=== PATIENT | female | born 1970 | race Caucasian/White ===

== ENCOUNTER 2016-09-26 07:34 | Emergency (ER) | payer OTHER ==
[~2016-09-26] VITALS: Ht 162.6 cm; Wt 68.0 kg
[~2016-09-26 07:34] MED LIST: ONDA4TAB10 SL; OXYC-323 PO
[2016-09-26 07:47] VITALS: BP 132/86
[2016-09-26] MEDS ORDERED: DIPHTH,PERTUSS(ACELL),TET TOX 0.5 ML DISP.SYRIN. VAX IM ONE (08:00)
[2016-09-26] MEDS ORDERED: HYDROcodone/APAP 5/325MG 1 TAB TABLET PO ONE (08:00)
[2016-09-26] MEDS ORDERED: HYDR-971 PO (08:07)
--- NOTE | 2016-09-26 08:07 | PHYS DOC ---
Past Medical History Past Medical History: Anemia Past Surgical History: , Gastric Bypass, Knee Replacement, Tubal ligation, Other Additional Past Surgical Histo: ablation Alcohol Use: Occasionally Drug Use: None Adult General Chief Complaint Chief Complaint: BURN/SMOKE INHALATION [facility] HPI Patient is a 45 year old female presents emergency department stating that she was blowing class this morning when she brought her left middle finger back porch. Patient appears to have tightness noted on the pad of her third finger. She does have the soaking in ice water which seems to help with the pain and discomfort. Patient states she is not allergic to any medications although she is unable to take nonsteroidal anti-inflammatories due to her gastric bypass. Patient is unsure when her last tetanus immunization occurred. Review of Systems Review of Systems Constitutional: Denies fever or chills [] Eyes: Denies change in visual acuity, redness, or eye pain [] HENT: Denies nasal congestion or sore throat [] Respiratory: Denies cough or shortness of breath [] Cardiovascular: No additional information not addressed in HPI [] GI: Denies abdominal pain, nausea, vomiting, bloody stools or diarrhea [] : Denies dysuria or hematuria [] Musculoskeletal: Denies back pain or joint pain [] Integument: Denies rash or skin lesions. C/o burn to the left middle finger Neurologic: Denies headache, focal weakness or sensory changes [] Endocrine: Denies polyuria or polydipsia [] Allergies Allergies Allergies Coded Allergies Type Severity Reaction Last Updated Verified No Known Drug Allergies 09/26/16 No Physical Exam Physical Exam Constitutional: Well developed, well nourished, no acute distress, non-toxic appearance. [] HENT: Normocephalic, atraumatic, bilateral external ears normal, oropharynx moist, no oral exudates, nose normal. [] Eyes: PERRLA, EOMI, conjunctiva normal, no discharge. [] Neck: Normal range of motion, no tenderness, supple, no stridor. [] Cardiovascular:Heart rate regular rhythm Lungs & Thorax: no respiratory distress noted Skin: Warm, dry, no erythema, no rash. Patient with 3rd left finger gilbert side of the finger white in color. No blistering noted at this time. Back: No tenderness Extremities: No tenderness, no cyanosis, no clubbing, ROM intact, no edema. [] Neurologic: Alert and oriented X 3, normal motor function, normal sensory function, no focal deficits noted. [] Psychologic: Affect normal, judgement normal, mood normal. [] Current Patient Data Vital Signs Vital Signs Date Time Temp Pulse Resp B/P (MAP) Pulse Ox O2 Delivery O2 Flow Rate FiO2 09/26/16 07:47 97.9 88 18 100 Room Air 97.9 EKG EKG [] Radiology/Procedures Radiology/Procedures [] Course & Med Decision Making Course & Med Decision Making Pertinent Labs and Imaging studies reviewed. (See chart for details) Patient will be provided with hydrocodone for severe pain and discomfort. Patient was instructed this medication will cause drowsiness do not take any be alert and oriented. Patient was also recommended to use ice packs on 20 minutes off 20 minutes several times a day elevation as much as possible. She was also encouraged to use antibiotic ointment over the area twice a day. Be encouraged she was also instructed that the posterior does develop that she should not pop the blister and allow it to heal. Patient was also recommended to follow-up with her primary care physician in the next 2-3 days. Signs and symptoms to return back to the emergency department as been provided. Patient will be discharged home in stable condition. She'll have her tetanus updated here in the emergency department. [] Dragon Disclaimer Brenda Disclaimer This electronic medical record was generated, in whole or in part, using a voice recognition dictation system. Departure Departure Impression: Primary Impression: Partial thickness burn of left middle finger Disposition: 01 HOME, SELF-CARE Condition: STABLE Referrals: NO PCP (PCP) Patient Instructions: Second-Degree Burn Additional Instructions: Activity as tolerated. Hydrocodone for pain and discomfort. This medication will cause drowsiness do not take any be alert and oriented. Ice packs on 20 minutes off 20 minutes several times a day. Keep the finger bandaged with antibiotic ointment placed over the area. Blister develops do not popped blister. [The area to heal. Watch for signs and symptoms of infection: Redness, warmth, tenderness or any yellow/greenish transient may appear physician occur follow-up through primary care physician immediately. Follow-up through primary care physician in 2-3 Days. Return Back to Emergency Prior Signs and Symptoms of Become Worse. Scripts Hydrocodone/Apap 5-325 (NORCO 5-325 TABLET) 1 Each Tablet 1 TAB PO PRN Q6HRS Y for PAIN for 10 Days, TAB 0 Refills Prov: RADHA DAMIAN APRN 09/26/16 RADHA DAMIAN APRN September 26, 2016 08:07
[2016-09-26] MEDS ORDERED: NEOMY/BACITR/POLYMYXIN OINT PACKET. TP ONE (08:15)
== END 2016-09-26 08:40 | disposition home or self-care (01) ==
LOC: ER 07:46
DX: T23.022A Burn of unspecified degree of single left finger (nail) except thumb, initial encounter (principal); X08.8XXA Exposure to other specified smoke, fire and flames, initial encounter; Y93.89 Activity, other specified; Y92.89 Other specified places as the place of occurrence of the external cause; Y99.8 Other external cause status
CPT/HCPCS: 90471; 90715; 99283-25

== ENCOUNTER 2017-01-03 14:25 | Emergency (ER) | payer OTHER ==
[~2017-01-03] VITALS: Ht 165.1 cm; Wt 68.0 kg
[~2017-01-03 14:25] MED LIST changes: +HYDR-971 PO
[2017-01-03 14:40] VITALS: BP 130/85
[2017-01-03] MEDS ORDERED: EMTR1TAB8 PO (15:41)
[2017-01-03] MEDS ORDERED: RALT400T PO (15:41)
--- NOTE | 2017-01-03 15:42 | PHYS DOC ---
Past Medical History Past Medical History: Anemia Past Surgical History: , Gastric Bypass, Knee Replacement, Tubal ligation, Other Additional Past Surgical Histo: ablation Alcohol Use: Occasionally Drug Use: None Adult General Chief Complaint Chief Complaint: NEEDLE STICK HPI HPI Patient is a 46 year old female who presents with needlestick injury. 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 States today just prior to arrival she was providing usual services for a patient who made sudden movement during end of dialysis, needle became dislodged & she had to respond quickly to control bleeding. As she reached for gauze, she accidentally received needle stab wound to right index finger. Needle is 15g hollow bore. She has paperwork that indicates source patient is negative for hepatitis B & C , but HIV status is unknown. She believes this information to be accurate. Review of Systems Review of Systems Constitutional: Denies fever Respiratory: Denies shortness of breath Cardiovascular: Denies chest pain GI: Denies abdominal pain Musculoskeletal: reports needle stick injury. Integument: Denies rash Neurologic: Denies headache Allergies Allergies Allergies Coded Allergies Type Severity Reaction Last Updated Verified No Known Drug Allergies 09/26/16 No Physical Exam Physical Exam Constitutional: Well developed, well nourished, anxious HENT: Normocephalic, atraumatic, bilateral external ears normal, oropharynx moist, nose normal. Eyes: conjunctiva normal, no discharge. Cardiovascular: no edema. Lungs & Thorax: no respiratory distress. Abdomen: nondistended. Skin: tiny puncture wound to right index fingertip volar aspect, hemostatic. Extremities: puncture wound as above Neurologic: Alert and oriented X 3 Current Patient Data Vital Signs Vital Signs Date Time Temp Pulse Resp B/P (MAP) Pulse Ox O2 Delivery O2 Flow Rate FiO2 01/03/17 14:40 98.3 88 16 99 Room Air 98.3 Lab Values Laboratory Tests Test 01/03/17 15:55 White Blood Count 5.8 x10^3/uL (4.0-11.0) Red Blood Count 4.01 x10^6/uL (3.50-5.40) Hemoglobin 9.9 g/dL (12.0-15.5) L Hematocrit 30.9 % (36.0-47.0) L Mean Corpuscular Volume 77 fL (79-100) L Mean Corpuscular Hemoglobin 25 pg (25-35) Mean Corpuscular Hemoglobin Concent 32 g/dL (31-37) Red Cell Distribution Width 16.7 % (11.5-14.5) H Platelet Count 376 x10^3/uL (140-400) Neutrophils (%) (Auto) 59 % (31-73) Lymphocytes (%) (Auto) 27 % (24-48) Monocytes (%) (Auto) 9 % (0-9) Eosinophils (%) (Auto) 4 % (0-3) H Basophils (%) (Auto) 1 % (0-3) Neutrophils # (Auto) 3.4 x10^3uL (1.8-7.7) Lymphocytes # (Auto) 1.6 x10^3/uL (1.0-4.8) Monocytes # (Auto) 0.5 x10^3/uL (0.0-1.1) Eosinophils # (Auto) 0.2 x10^3/uL (0.0-0.7) Basophils # (Auto) 0.0 x10^3/uL (0.0-0.2) Maternal Serum HCG Beta Subunit < 1 mIU/mL (0-5) Sodium Level 141 mmol/L (136-145) Potassium Level 3.9 mmol/L (3.5-5.1) Chloride Level 106 mmol/L (98-107) Carbon Dioxide Level 25 mmol/L (21-32) Anion Gap 10 (6-14) Blood Urea Nitrogen 15 mg/dL (7-20) Creatinine 0.6 mg/dL (0.6-1.0) Estimated GFR (Cockcroft-Gault) 108.1 BUN/Creatinine Ratio 25 (6-20) H Glucose Level 82 mg/dL (70-99) Calcium Level 8.4 mg/dL (8.5-10.1) L Total Bilirubin 0.3 mg/dL (0.2-1.0) Aspartate Amino Transferase (AST) 24 U/L (15-37) Alanine Aminotransferase (ALT) 31 U/L (14-59) Alkaline Phosphatase 111 U/L (46-116) Total Protein 6.5 g/dL (6.4-8.2) Albumin 3.2 g/dL (3.4-5.0) L Albumin/Globulin Ratio 1.0 (1.0-1.7) Laboratory Tests 01/03/17 15:55 Laboratory Tests 01/03/17 15:55 EKG EKG [] Radiology/Procedures Radiology/Procedures [] Course & Med Decision Making Course & Med Decision Making Pertinent Labs and Imaging studies reviewed. (See chart for details) The patient presents with needlestick injury. Potentially concerning exposure given large gauge needle which is hollow bore & known to be grossly bloody. cap and hat production supervisor provided our exposure paperwork & I ordered labs through the usual process for baseline evaluation. She did not have protocol with her from [facility] [facility] so will follow our usual process. Discussed with Dr. Churchill, recommends no need for hepatitis labs as patient known to be negative. Provided recommendation for appropriate HIV labs. He did recommend PEP for HIV based on her exposure, using Isentress & Truvada. Will give prescription for 28 days but anticipate she will be able to d/c if source patient is negative. Will refer to Dr Churchill in ID clinic as [employer] [facility] process not well conveyed in paperwork she brought to the visit. However, I encouraged her to follow up with employee health as recommended by her supervisor blood as they are likely to be better equipped to student services counselor her regarding results for the source patient. She should follow up as soon as possible so she can receive further counseling & discontinue prophylaxis if not needed. She is discharged home in stable condition. Dragon Disclaimer Dragon Disclaimer This electronic medical record was generated, in whole or in part, using a voice recognition dictation system. Departure Departure Impression: Primary Impression: Needle stick injury Disposition: 01 HOME, SELF-CARE Condition: STABLE Referrals: NO PCP (PCP) MAYRA CHURCHILL MD Patient Instructions: Needle Stick Injury, [id number] Additional Instructions: You were seen in the emergency department today after needle stick injury. Labs were sent. It is very important to follow-up per your facilities protocol to receive more information about illnesses that the patient might have. For now, we recommend starting prophylactic medication to prevent the transmission of HIV. Please follow-up as soon as possible as recommended by your facility for further counseling. You may be able to discontinue the medication if the patient tests negative for HIV. Scripts Emtricitabine/Tenofovir (TRUVADA 200 MG-300 MG TABLET) 1 Each Tablet 1 TAB PO DAILY, #28 TAB 0 Refills Prov: KEESHA DEY MD 01/03/17 Raltegravir Potassium (ISENTRESS) 400 Mg Tablet 400 MG PO BID for 28 Days, #56 TAB Prov: KEESHA DEY MD 01/03/17 KEESHA DEY MD Jan 03, 2017 15:42
[2017-01-03 16:05] LABS: BASO % 1 % (0-3); EOS % 4 % (0-3); HEMATOCRIT 30.9 % (36.0-47.0); HEMOGLOBIN 9.9 g/dL (12.0-15.5); LYMPH # 1.6 x10^3/uL (1.0-4.8); LYMPH % 27 % (24-48); MEAN CORPUSCULAR HEMOGLOBIN 25 pg (25-35); MEAN CORPUSCULAR HGB CONC 32 g/dL (31-37); MEAN CORPUSCULAR VOLUME 77 fL (79-100); MONO % 9 % (0-9); NEUT % 59 % (31-73); PLATELET COUNT 376 x10^3/uL (140-400); RED BLOOD COUNT 4.01 x10^6/uL (3.50-5.40); RED CELL DISTRIBUTION WIDTH 16.7 % (11.5-14.5); WHITE BLOOD COUNT 5.8 x10^3/uL (4.0-11.0)
[2017-01-03 16:30] LABS: CALCIUM 8.4 mg/dL (8.5-10.1); CREATININE 0.6 mg/dL (0.6-1.0); GFR 108.1; POTASSIUM 3.9 mmol/L (3.5-5.1)
[2017-01-03 16:36] LABS: ALBUMIN 3.2 g/dL (3.4-5.0); TOTAL BILIRUBIN 0.3 mg/dL (0.2-1.0); TOTAL PROTEIN 6.5 g/dL (6.4-8.2)
[2017-01-04 18:10] LABS: HIV ANTIBODY Non Reactive (Non Reactive)
== END 2017-01-03 16:22 | disposition home or self-care (01) ==
LOC: ER 14:25
DX: W46.0XXA Contact with hypodermic needle, initial encounter (principal); Z99.2 Dependence on renal dialysis; Z98.51 Tubal ligation status; Z98.84 Bariatric surgery status; W26.8XXA Contact with other sharp object(s), not elsewhere classified, initial encounter; Y93.89 Activity, other specified; Y99.8 Other external cause status; Y92.238 Other place in hospital as the place of occurrence of the external cause
CPT/HCPCS: 36415; 80053; 84702; 85025; 86701; 86702; 86703; 87535; 99284

== ENCOUNTER 2017-04-06 20:06 | Emergency (ER) | payer OTHER ==
[~2017-04-06] VITALS: Ht 165.1 cm; Wt 68.0 kg
[~2017-04-06 20:06] MED LIST changes: +EMTR1TAB8 PO; +RALT400T PO
[2017-04-06 20:20] VITALS: BP 116/78
--- NOTE | 2017-04-06 20:46 | PHYS DOC ---
Past Medical History Past Medical History: Anemia, Other Additional Past Medical Histor: L FOOT EDEMA Past Surgical History: , Gastric Bypass, Knee Replacement, Tubal ligation, Other Additional Past Surgical Histo: ablation Alcohol Use: Occasionally Drug Use: None Adult General Chief Complaint Chief Complaint: HAND PROBLEM HPI HPI Patient is a 46 year old female presents the ED complaining of right hand injury 1 week. Patient states she punched a wall one week ago. Patient states the pain has continued and the swelling has not decreased. Describes the pain as sharp. Rates the pain as 9 out of 10. Denies head/neck injury, redness, fever , chest pain or shortness of breath. Review of Systems Review of Systems Constitutional: Denies fever or chills [] Eyes: Denies change in visual acuity, redness, or eye pain [] HENT: Denies nasal congestion or sore throat [] Respiratory: Denies cough or shortness of breath [] Cardiovascular: No additional information not addressed in HPI [] GI: Denies abdominal pain, nausea, vomiting, bloody stools or diarrhea [] : Denies dysuria or hematuria [] Musculoskeletal: Complains of hand pain. Denies back pain. [] Integument: Denies rash or skin lesions [] Neurologic: Denies headache, focal weakness or sensory changes [] Endocrine: Denies polyuria or polydipsia [] All other systems were reviewed and found to be within normal limits, except as documented in this note. Allergies Allergies Allergies Coded Allergies Type Severity Reaction Last Updated Verified No Known Drug Allergies 09/26/16 No Physical Exam Physical Exam Constitutional: Well developed, well nourished, no acute distress, non-toxic appearance. [] HENT: Normocephalic, atraumatic, bilateral external ears normal, oropharynx moist, no oral exudates, nose normal. [] Eyes: PERRLA, EOMI, conjunctiva normal, no discharge. [] Neck: Normal range of motion, no tenderness, supple, no stridor. [] Skin: Warm, dry, no erythema, no rash. [] Back: No tenderness, no CVA tenderness. [] Extremities: MILD RIGHT 4TH AND 5TH METACARPAL TENDERNESS/SWELLING, no cyanosis , no clubbing, ROM intact, no edema. [] Neurologic: Alert and oriented X 3, normal motor function, normal sensory function, no focal deficits noted. [] Psychologic: Affect normal, judgement normal, mood normal. [] Current Patient Data Vital Signs Vital Signs Date Time Temp Pulse Resp B/P (MAP) Pulse Ox O2 Delivery O2 Flow Rate FiO2 04/06/17 20:20 97.8 91 16 100 Room Air 97.8 EKG EKG [] Radiology/Procedures Radiology/Procedures PROCEDURE: HAND RIGHT 3V Hand x-rays Indication:, Technique: 3 views of the right hand Comparison: None Findings: There is a complete transverse dorsally angulated fracture of the distal metaphysis of the fifth metacarpal bone with no extension to the articular surface. Soft tissue swelling noted at the fracture site. The carpal joints are within normal limits. Impression: Fracture of the neck of the fifth metacarpal (boxer's fracture).[] Course & Med Decision Making Course & Med Decision Making Pertinent Labs and Imaging studies reviewed. (See chart for details) []Discussed imaging findings with patient. Boxers fracture seen. Patient placed in ulnar gutter splint. Neurovascular intact post placement. Discussed follow- up with orthopedics in 1-2 days. Provided contact information/education. Discussed reasons to return to the ED. Patient understands and agrees with plan. Dragon Disclaimer Dragon Disclaimer This electronic medical record was generated, in whole or in part, using a voice recognition dictation system. Departure Departure Impression: Primary Impression: Boxers fracture Disposition: 01 HOME, SELF-CARE Condition: IMPROVED Referrals: NO PCP (PCP) SATHYA MEZA MD Patient Instructions: Boxer's Fracture Scripts Hydrocodone/Apap 5-325 (NORCO 5-325 TABLET) 1 Each Tablet 1 TAB PO TID, #10 TAB Prov: CRISTA DELATORRE 04/06/17 CRISTA DELATORRE Apr 06, 2017 20:46
[2017-04-06] MEDS ORDERED: HYDR-971 PO (21:56)
--- NOTE | 2017-04-07 07:52 | RAD ---
Hand x-rays Indication:, Technique: 3 views of the right hand Comparison: None Findings: There is a complete transverse dorsally angulated fracture of the distal metaphysis of the fifth metacarpal bone with no extension to the articular surface. Soft tissue swelling noted at the fracture site. The carpal joints are within normal limits. Impression: Fracture of the neck of the fifth metacarpal (boxer's fracture).
== END 2017-04-06 22:06 | disposition home or self-care (01) ==
LOC: ER 20:06
DX: S62.91XA Unspecified fracture of right hand, initial encounter for closed fracture (principal); Z86.2 Personal history of diseases of the blood and blood-forming organs and certain disorders involving the immune mechanism; W22.01XA Walked into wall, initial encounter; Y93.89 Activity, other specified; Y99.8 Other external cause status; Y92.89 Other specified places as the place of occurrence of the external cause
CPT/HCPCS: 29125; 73130; 99284-25